=== PATIENT | male | born 1965 ===

== ENCOUNTER 2018-06-08 21:07 | Emergency (ER) | payer BC ==
[2018-06-08 21:12] VITALS: BMI 29.8
[2018-06-08] MEDS ORDERED: Sodium Chloride 0.9% 1,000 ML IV STA ×2 (21:31→23:22)
[2018-06-08 22:25] LABS: BASO # 0.01 K/mm3 (0.0-2.0); BASO % 0.1 % (0.0-3.0); HEMOGLOBIN 15.8 g/dL (14.0-18.0); LYMPH # 0.7 (1.2-3.4); LYMPH % 10.1 % (22.0-35.0); MEAN CELL VOLUME 85.1 fl (80.0-105.0); MEAN CORPUSCULAR HEMOGLOBIN 29.2 pg (25.0-35.0); MEAN CORPUSCULAR HGB CONC 34.3 g/dl (31.0-37.0); MEAN PLATELET VOLUME 10.7 fl (7.0-11.0); MONO # 0.4 (0.1-0.6); MONO % 5.8 % (1.0-6.0); RBC 5.42 10^6/uL (3.5-6.1); RED CELL DISTRIBUTION WIDTH 12.9 % (11.5-14.5); WHITE BLOOD COUNT 7.2 10^3/uL (4.5-11.0)
[2018-06-08 22:26] LABS: URINE BILIRUBIN NEGATIVE (NEGATIVE); URINE BLOOD NEGATIVE (NEGATIVE); URINE GLUCOSE (UA) >=1000 mg/dL (NEGATIVE); URINE LEUKOCYTE ESTERASE NEGATIVE Leu/uL (NEGATIVE); URINE PROTEIN NEGATIVE mg/dL (<30 mg/dL); URINE UROBILINOGEN 0.2 E.U./dL (<1 E.U./dL)
[2018-06-08 22:32] LABS: URINE APPEARANCE CLEAR (CLEAR); URINE COLOR YELLOW (YELLOW)
[2018-06-08 22:36] LABS: ALB/GLOB RATIO 1.2 (1.1-1.8); ALBUMIN 4.2 g/dL (3.0-4.8); ALT/SGPT 35 U/L (7-56); AST/SGOT 30 U/L (17-59); BLOOD UREA NITROGEN 18 mg/dL (7-21); CALCIUM 8.3 mg/dL (8.4-10.5); GFR NON-AFRICAN AMERICAN > 60; LIPASE 40 U/L (23-300)
[2018-06-08 22:38] LABS: INR 1.29; PROTHROMBIN TIME 14.3 SECONDS (9.4-12.5)
--- NOTE | 2018-06-08 23:17 | ED PDOC ---
Arrival/HPI - General Chief Complaint: GI Problem Time Seen by Provider: 06/08/18 21:19 Historian: Patient - History of Present Illness Narrative History of Present Illness (Text): 06/08/18 23:18 53yo male with pmhx of hypertension and diabetes who present with complaint of nausea/vomiting and diarrhea since last night. States it started with abdominal pain last night that resolved after vomiting once today. States he had 2episodes of nonbloody diarrhea today. Had fever today. He otherwise denies abdominal pain, hematemesis, hematochezia, cough, chest pain, SOB, rhinorrhea, sore throat, any other complaint. Past Medical History - Provider Review Nursing Documentation Reviewed: Yes - Infectious Disease Hx of Infectious Diseases: None - Cardiac Hx Hypertension: Yes - Endocrine/Metabolic Hx Diabetes Mellitus Type 2: Yes - Psychiatric Hx Substance Use: No Family/Social History - Physician Review Nursing Documentation Reviewed: Yes Family/Social History: Unknown Family HX Smoking Status: Never Smoked Hx Alcohol Use: Yes Frequency of alcohol use: Socially Hx Substance Use: No Allergies/Home Meds Allergies/Adverse Reactions: Allergies No Known Allergies Allergy (Verified 06/08/18 21:12) Home Medications: Home Meds Medication Instructions Recorded Confirmed Dulaglutide [Trulicity] 1.5 mg SC Q7D 06/08/18 06/08/18 RX: MetFORMIN [glucoPHAGE] 1 tab PO BID 06/08/18 06/08/18 RX: Quinapril [Accupril] 20 mg PO DAILY 06/08/18 06/08/18 Review of Systems - Physician Review All systems were reviewed & negative as marked: Yes - Review of Systems Constitutional: Fevers Eyes: Normal ENT: Normal Respiratory: Normal Cardiovascular: Normal Gastrointestinal: Diarrhea, Nausea. absent: Abdominal Pain, Hematochezia, Hematemesis Genitourinary Male: Normal Musculoskeletal: Normal Skin: Normal Neurological: Normal Endocrine: Normal Hemo/Lymphatic: Normal Psychiatric: Normal Physical Exam Vital Signs Temp Pulse Resp BP Pulse Ox 06/08/18 22:35 120 H 18 124/77 92 L 06/08/18 21:15 102.2 F H 131 H 18 142/85 96 Temperature: Afebrile Blood Pressure: Normal Pulse: Regular Respiratory Rate: Normal Appearance: Positive for: Well-Appearing, Non-Toxic, Comfortable Pain Distress: None Mental Status: Positive for: Alert and Oriented X 3 - Systems Exam Head: Present: Atraumatic, Normocephalic Pupils: Present: PERRL Extroacular Muscles: Present: EOMI Conjunctiva: Present: Normal Mouth: Present: Moist Mucous Membranes Neck: Present: Normal Range of Motion Respiratory/Chest: Present: Clear to Auscultation, Good Air Exchange. No: Respiratory Distress, Accessory Muscle Use Cardiovascular: Present: Regular Rate and Rhythm, Normal S1, S2. No: Murmurs Abdomen: No: Tenderness, Distention, Peritoneal Signs Back: Present: Normal Inspection Upper Extremity: Present: Normal Inspection. No: Cyanosis, Edema Lower Extremity: Present: Normal Inspection. No: Edema Neurological: Present: GCS=15, CN II-XII Intact, Speech Normal Skin: Present: Warm, Dry, Normal Color. No: Rashes Psychiatric: Present: Alert, Oriented x 3, Normal Insight, Normal Concentration Medical Decision Making ED Course and Treatment: 06/09/18 00:58 PT present to ED for stated history. He was febrile and tachy, but not lethargic. he was talking and laughing. Not hypoxic. Labs rapid flu 1L NS, Tylenol chest xray Labs was all unremarkable. His symptoms likely secondary to viral syndrome. His HR improved in ED with hydration and antipyretics chest xray NAD He was DC home and advised to drink plenty of fluid, rest and take Tylenol as needed for fever. Referred to his PMd. TRT ED for any worsening symptoms - Lab Interpretations Lab Results: PT 14.3 SECONDS (9.4-12.5) H 06/08/18 22: INR 1.29 06/08/18 22:19 APTT 31.0 Seconds (26.9-38.3) 06/08/18 22:19 Total Bilirubin 0.6 mg/dL (0.2-1.3) 06/08/18 22: AST 30 U/L (17-59) 06/08/18 22: ALT 35 U/L (7-56) 06/08/18 22:19 Alkaline Phosphatase 70 U/L (38-126) 06/08/18 22: Total Protein 7.7 g/dL (5.8-8.3) 06/08/18 22: Albumin 4.2 g/dL (3.0-4.8) 06/08/18 22:19 Globulin 3.5 gm/dL 06/08/18 22:19 Albumin/Globulin Ratio 1.2 (1.1-1.8) 06/08/18 22:19 Lipase 40 U/L (23-300) 06/08/18 22:19 Urine Color Yellow (YELLOW) 06/08/18 22:20 Urine Appearance Clear (CLEAR) 06/08/18 22:20 Urine pH 6.0 (4.7-8.0) 06/08/18 22:20 Ur Specific [place] 1.010 (1.005-1.035) 06/08/18 22:20 Urine Protein Negative mg/dL (<30 mg/dL) 06/08/18 22:20 Urine Glucose (UA) >=1000 mg/dL (NEGATIVE) 06/08/18 22:20 Urine Ketones Negative mg/dL (NEGATIVE) 06/08/18 22:20 Urine Blood Negative (NEGATIVE) 06/08/18 22:20 Urine Nitrate Negative (NEGATIVE) 06/08/18 22:20 Urine Bilirubin Negative (NEGATIVE) 06/08/18 22:20 Urine Urobilinogen 0.2 E.U./dL (<1 E.U./dL) 06/08/18 22:20 Ur Leukocyte Esterase Negative Anny/uL (NEGATIVE) 06/08/18 22:20 - Medication Orders Current Medication Orders: Discontinued Medications Acetaminophen (Tylenol 325mg Tab) 650 mg PO STAT STA Stop: 06/08/18 21:20 Last Admin: 06/08/18 22:01 Dose: 650 mg Sodium Chloride (Sodium Chloride 0.9%) 1,000 mls @ 1,000 mls/hr IV .Q1H STA Stop: 06/08/18 22:30 Last Admin: 06/08/18 22:00 Dose: 1,000 mls/hr eMAR Start Stop Document 06/08/18 22:00 DM (Rec: 06/08/18 22:00 DM [id number]) Intravenous Solution Start Date 06/08/18 Start Time 22:00 Ondansetron HCl (Zofran Inj) 4 mg IVP STAT STA Stop: 06/08/18 21:32 Last Admin: 06/08/18 22:01 Dose: 4 mg IVP Administration Document 06/08/18 22:01 DM (Rec: 06/08/18 22:01 DM [id number]) Charges for Administration # of IVP Administrations 1 Disposition/Present on Arrival - Present on Arrival Any Indicators Present on Arrival: No History of DVT/PE: No History of Uncontrolled Diabetes: No Urinary Catheter: No History of Decub. Ulcer: No History Surgical Site Infection Following: None - Disposition Have Diagnosis and Disposition been Completed?: Yes Diagnosis: Viral syndrome, Diarrhea Disposition: HOME/ ROUTINE Disposition Time: 00:00 Patient Plan: Discharge Patient Problems: Current Active Problems Problem Status Onset Diarrhea Acute Viral syndrome Acute Condition: STABLE Discharge Instructions (ExitCare): Diarrhea in Adolescents and Adults Additional Instructions: Follow up with your doctor Drink plenty of fluids and rest Return to ED for any new or worsening symptoms Referrals: Kristie Sandhu MD [Medical Doctor] - Follow up with primary Forms: [employer] (Uzbek)
[2018-06-08 23:25] VITALS: BP 121/77; PULSE 121; RESP 20; TEMP 99.1; O2SAT 97
--- NOTE | 2018-06-09 11:13 | CARD ---
APPROVED REPORT Date of service: 06/08/2018 EKG Measurement Heart [id number] <Conclusion> Sinus tachycardia Moderate voltage criteria for LVH, may be normal variant Borderline ECG
--- NOTE | 2018-06-09 12:59 | RAD ---
Date of service: 06/08/2018 HISTORY: fever COMPARISON: No prior. FINDINGS: LUNGS: No active pulmonary disease. PLEURA: No significant pleural effusion identified, no pneumothorax apparent. CARDIOVASCULAR: No aortic atherosclerotic calcification present. Heart size borderline/mildly enlarged. No pulmonary vascular congestion. OSSEOUS STRUCTURES: No significant abnormalities. VISUALIZED UPPER ABDOMEN: Normal. OTHER FINDINGS: None. IMPRESSION: No active disease.
== END 2018-06-09 00:31 | disposition home or self-care (01) ==
LOC: ED 21:07
DX: B34.9 Viral infection, unspecified (principal); R19.7 Diarrhea, unspecified; E11.9 Type 2 diabetes mellitus without complications; I10 Essential (primary) hypertension
CPT/HCPCS: 71045; 80053; 81003; 83690; 83735; 85025; 85610; 85730; 87804; 93005; 96374; 99284; J2405; J7030